=== PATIENT | female | born 1975 | race African-American/Black ===

== ENCOUNTER 2018-08-15 12:26 | Emergency (ER) | payer OTHER ==
[2018-08-15 12:49] VITALS: BMI 30.5
--- NOTE | 2018-08-15 13:35 | PDOC ---
History of Present Illness - General Chief Complaint: Rectal Bleed Stated Complaint: ABD PAIN Time Seen by Provider: 08/15/18 13:01 History Source: Patient Exam Limitations: Clinical Condition - History of Present Illness Initial Comments: 08/15/18 13:30 Patient with no significant past medical history present with complaint of 4 day history of bloody stool with bowel movement. Patient reported given amoxicillin antibiotics 5 days ago and ibuprofen for dental infection which she started having bloody stool the next day. Patient report going to [facility] yesterday for same symptoms and rectal exam and lab work done was normal with no blood on rectal exam and referred to follow-up with GI but was told by GI office when she went there today that her insurance was not accepted at the office so she came to this ED due to still having blood in stool. Pt report 1 BM today which had bright blood. Patient also report intermittent cramping lower left abdominal pain. Pt endorses report h/o hemorrhoids Denies vaginal bleeding, dysuria Timing/Duration: other (4 days) Past History - Past Medical History Allergies/Adverse Reactions: Allergies Allergy/AdvReac Type Severity Reaction Status Date / Time No Known Allergies Allergy Verified 08/15/18 12:42 Home Medications: Ambulatory Orders Docusate Sodium [Colace] 100 mg PO BID #20 capsule 08/15/18 Asthma: No Cancer: No Cardiac Disorders: No COPD: No Diabetes: No HTN: No Seizures: No Thyroid Disease: No - Surgical History GI Surgery: Yes (3.5 inches colon removed) - Immunization History Immunization Up to Date: Yes - Suicide/Smoking/Psychosocial Hx Smoking History: Current every day smoker Have you smoked in the past 12 months: Yes Number of Cigarettes Smoked Daily: 20 Information on smoking cessation initiated: No Hx Alcohol Use: No Drug/Substance Use Hx: No Hx Substance Use Treatment: No Review of Systems - Review of Systems Able to Perform ROS?: Yes Is the patient limited Samoan proficient: No Constitutional: No: Chills, Fever, Malaise HEENTM: No: Symptoms Reported Respiratory: No: Symptoms reported, See HPI, Cough, Orthopnea, Shortness of Breath, SOB with Exertion, SOB at Rest, Stridor, Wheezing, Productive cough, Hemoptysis, Other Cardiac (ROS): No: Symptoms Reported, See HPI, Chest Pain, Edema, Irregular Heart Rate, Lightheadedness, Palpitations, Syncope, Chest Tightness, Other ABD/GI: Yes: Symptoms Reported, See HPI, Nausea, Rectal Bleeding, Abdominal cramping (LLQ), Tarry Stools. No: Abdominal Distended, Abd. Pain w/ defecation , Blood Streaked Bowels, Constipated, Diarrhea, Difficulty Swallowing, Vomiting , Indigestion : No: Burning, Dysuria, Discharge, Frequency, Urgency Neurological: No: Weakness, Dizziness All Other Systems: Reviewed and Negative *Physical Exam - Vital Signs Last Vital Signs Temp Pulse Resp BP Pulse Ox 83 18 126/76 100 08/15/18 12:42 08/15/18 12:42 08/15/18 12:42 08/15/18 12:42 - Physical Exam Comments: 08/15/18 13:38 GENERAL: Well developed, well nourished. Awake and alert. No acute distress. HEENT: Normocephalic, atraumatic. PERRLA, EOMI. No conjunctival pallor. Sclera are non-icteric. Moist mucous membranes. Oropharynx is clear. NECK: Supple. Full ROM. CARDIOVASCULAR: Regular rate and rhythm. No murmurs, rubs, or gallops. Distal pulses are 2+ and symmetric. PULMONARY: No evidence of respiratory distress. Lungs clear to auscultation bilaterally. No wheezing, rales or rhonchi. ABDOMINAL: Soft. mild TTP over LLQ.. Non-distended. No rebound or guarding. No organomegaly. Normoactive bowel sounds. MUSCULOSKELETAL Normal range of motion at all joints. SKIN: Warm and dry. Normal capillary refill. No rashes. NEUROLOGICAL: Alert, awake, appropriate. Gait is normal without ataxia. PSYCHIATRIC: Cooperative. Good eye contact. Appropriate mood General Appearance: Yes: Nourished, Appropriately Dressed. No: Apparent Distress ED Treatment Course - LABORATORY CBC & Chemistry Diagram: 08/15/18 13:35 08/15/18 13:18 - RADIOLOGY Radiology Studies Ordered: Category Date Time Status ABDOMEN & PELVIS CT WITH CONTR [CT] Stat CT Scan 08/15/18 13:10 Ordered Medical Decision Making - Medical Decision Making 08/15/18 13:35 Patient with no significant past medical history present with complaint of 4 day history of bloody stool with bowel movement. Patient reported given amoxicillin antibiotics 5 days ago and ibuprofen for dental infection which she started having bloody stool the next day. Patient report going to [facility] yesterday for same symptoms and rectal exam and lab work done was normal with no blood on rectal exam and referred to follow-up with GI but was told by GI office when she went there today that her insurance was not accepted at the office so she came to this ED due to still having blood in stool. Pt report 1 BM today which had bright blood. Patient also report intermittent cramping lower left abdominal pain. Pt endorses report h/o hemorrhoids Denies vaginal bleeding, dysuria. Exam significant for mild left LQ subjective tenderness w/o gaurding or rebound. rectal exam deferred due to being done yesterday with negative findings. CBC, chemistry labs ordered. abd CT with PO contrast ordered to r/o colitis or acute abd pathology 08/15/18 18:00 CMM, CBC with no acute findings. abd/pelvic CT shows no acute pathology . Patient stable for discharge on colace with GI follow-up *DC/Admit/Observation/Transfer Diagnosis at time of Disposition: Hematochezia not due to hemorrhage from anus - Discharge Dispostion Disposition: HOME Condition at time of disposition: Stable Decision to Admit order: No - Prescriptions Prescriptions: Docusate Sodium [Colace] 100 mg PO BID #20 capsule - Referrals Referrals: Jayleen Roa MD [Primary Care Provider] - James Ayala MD [Staff Physician] - - Patient Instructions Printed Discharge Instructions: DI for Hemorrhoids, DI for Rectal Bleeding Additional Instructions: Your labs was normal. Your abdominal CAT scant shows no acute findings. Your symptom is likely from hemorrhoids. Take prescribed medications as prescribed. Follow-up with referred GI doctor - Post Discharge Activity
[2018-08-15 13:48] LABS: BASO % 1.5 % (0-2.0); EOS % 1.5 % (0-4.5); HEMATOCRIT 42.7 % (32.4-45.2); HEMOGLOBIN 14.2 GM/dL (10.7-15.3); LYMPH % 30.8 % (8-40); MCHC 33.2 g/dl (32.0-36.0); MEAN CELL VOLUME 96.6 fl (80-96); MEAN PLT VOLUME 9.8 fl (7.5-11.1); MONO % 5.6 % (3.8-10.2); NEUT % 60.6 % (42.8-82.8); PLATELET COUNT 158 K/MM3 (134-434); RBC 4.42 M/mm3 (3.60-5.2); RDW 13.6 % (11.6-15.6); WHITE BLOOD COUNT 6.5 K/mm3 (4.0-10.0)
[2018-08-15 14:02] LABS: HCG,QUALITATIVE URINE Negative
[2018-08-15 14:20] LABS: ALBUMIN 3.2 g/dl (3.4-5.0); BILIRUBIN,TOTAL 0.3 mg/dL (0.2-1); CALCIUM 8.4 mg/dL (8.5-10.1); TOT PROT 6.8 g/dl (6.4-8.2)
[2018-08-15 15:34] LABS: EPI CELLS 8.2 /HPF (0-5/HPF); URINE APPEARANCE CLOUDY; URINE BACTERIA 80.9 /hpf (NEGATIVE); URINE BILIRUBIN NEGATIVE (NEGATIVE); URINE CASTS 2 /lpf (0-8); URINE COLOR YELLOW; URINE GLUCOSE (UA) NEGATIVE (NEGATIVE); URINE KETONE NEGATIVE (NEGATIVE); URINE LEUK ESTERASE NEGATIVE (NEGATIVE); URINE NITRITE NEGATIVE (NEGATIVE); URINE PROTEIN NEGATIVE (NEGATIVE); URINE UROBILINOGEN 0.2 mg/dL (0.2-1.0); URINE WBC 2 /hpf (0-5)
[2018-08-15 17:13] LABS: URINE RBC 4.9 /hpf (0-4)
[2018-08-15 18:04] VITALS: BP 130/72; PULSE 65
== END 2018-08-15 18:03 | disposition home or self-care (01) ==
LOC: JER 12:26
DX: K92.1 Melena (principal)
CPT/HCPCS: 36415; 74177-TC; 80053; 81003; 84703; 85025; 87086; 99283-25

== ENCOUNTER 2018-11-18 17:39 | Emergency (ER) | payer OTHER ==
[2018-11-18 17:52] VITALS: BP 120/84; PULSE 74; TEMP 99; BMI 30.5
[2018-11-18] MEDS ORDERED: LIDOCAINE HCL 2% JELLY 10 ML CARTRIDGE PR ONE (18:09)
[2018-11-18] MEDS ORDERED: LIDOCAINE HCL 2% JELLY 10 ML CARTRIDGE ONE (18:09)
--- NOTE | 2018-11-18 18:18 | PDOC ---
History of Present Illness - General Chief Complaint: Hemorrhoids Stated Complaint: HEMORRHOIDS Time Seen by Provider: 11/18/18 18:00 History Source: Patient Exam Limitations: Clinical Condition - History of Present Illness Initial Comments: 11/18/18 18:12 Patient with history of chronic constipation and recurrent hemorrhoids present with complaint of three-day history of hemorrhoids which is painful to sit. Patient reported using cold packs to her hemorrhoid area which help with pain but comes back. Reported taking Motrin sometimes for pain. Patient reported having hemorrhoids for many years but has not followed up with GI. report last BM last night Timing/Duration: other (3 days) Past History - Past Medical History Allergies/Adverse Reactions: Allergies Allergy/AdvReac Type Severity Reaction Status Date / Time No Known Allergies Allergy Verified 11/18/18 17:52 Home Medications: Ambulatory Orders Docusate Sodium [Colace] 100 mg PO BID #20 capsule 11/18/18 Hydrocortisone 2.5% Topical Cr [Anusol-Hc -] 1 applic RC BID 7 Days #1 tube 02/26 Witch Maria Del Rosario 50% (Tucks) [Tucks Witch Maria Del Rosario Pads] 1 pad TP BID PRN #50 pad Asthma: No Cancer: No Cardiac Disorders: No COPD: No Diabetes: No HTN: No Seizures: No Thyroid Disease: No - Surgical History GI Surgery: Yes (3.5 inches colon removed) - Immunization History Immunization Up to Date: Yes - Suicide/Smoking/Psychosocial Hx Smoking History: Never smoked Have you smoked in the past 12 months: Yes Number of Cigarettes Smoked Daily: 20 Hx Alcohol Use: No Drug/Substance Use Hx: No Hx Substance Use Treatment: No Review of Systems - Review of Systems Able to Perform ROS?: Yes Is the patient limited Swedish proficient: No Constitutional: No: Symptoms Reported, Chills, Fever HEENTM: No: Symptoms Reported Respiratory: No: Symptoms reported Cardiac (ROS): No: Symptoms Reported ABD/GI: Yes: Constipated (chronic). No: Symptoms Reported, See HPI, Nausea, Vomiting, Abdominal cramping : Yes: Other. No: Symptoms Reported, See HPI Integumentary: Yes: Symptoms Reported, See HPI, Lumps (hemorrhoid) Neurological: No: Symptoms reported All Other Systems: Reviewed and Negative *Physical Exam - Vital Signs Last Vital Signs Temp Pulse Resp BP Pulse Ox 99 F 74 18 120/84 99 11/18/18 17:49 11/18/18 17:49 11/18/18 17:49 11/18/18 17:49 11/18/18 17:49 - Physical Exam Comments: 11/18/18 18:16 GENERAL: Well developed, well nourished. Awake and alert in mild acute distress. PULMONARY: No evidence of respiratory distress. ABDOMINAL: Soft. Non-tender. Non-distended. No rebound or guarding. No organomegaly. Normoactive bowel sounds. MUSCULOSKELETAL Normal range of motion at all joints. SKIN: Warm and dry. Normal capillary refill. 1 cm external non-strangulated hemorrhoids to perianal area. no bleeding from site NEUROLOGICAL: Alert, awake, appropriate. Gait is normal without ataxia. PSYCHIATRIC: Cooperative. Good eye contact. Appropriate mood General Appearance: Yes: Nourished, Appropriately Dressed, Apparent Distress, Mild Distress Medical Decision Making - Medical Decision Making 11/18/18 18:13 Patient with history of chronic constipation and recurrent hemorrhoids present with complaint of three-day history of hemorrhoids which is painful to sit. Patient reported using cold packs to her hemorrhoid area which help with pain but comes back. Reported taking Motrin sometimes for pain. Patient reported having hemorrhoids for many years but has not followed up with GI Exam significant for 1 cm no strangulated external hemorrhoid to perianal area. No open wound or bleeding from site. Topical lidocaine apply to hemorrhoids. Patient be discharged home on topical steroid, tucks medicated wipes and Colace stool softener with GI follow-up *DC/Admit/Observation/Transfer Diagnosis at time of Disposition: External hemorrhoid Constipation Qualifiers: Constipation type: chronic idiopathic constipation Qualified Code(s): K59.04 - Chronic idiopathic constipation - Discharge Dispostion Disposition: HOME Condition at time of disposition: Stable Decision to Admit order: No - Prescriptions Prescriptions: Docusate Sodium [Colace] 100 mg PO BID #20 capsule Hydrocortisone 2.5% Topical Cr [Anusol-Hc -] 1 applic RC BID 7 Days #1 tube Witch Maria Del Rosario 50% (Tucks) [Tucks Witch Maria Del Rosario Pads] 1 pad TP BID PRN #50 pad PRN Reason: hemorrhoid - Referrals Referrals: Saturnino Sherman MD [Staff Physician] - - Patient Instructions Printed Discharge Instructions: DI for Hemorrhoids Additional Instructions: Take medications as prescribed. do siltz bath o help with hemorroids . Follow- up with referred GI - Post Discharge Activity
== END 2018-11-18 18:32 | disposition home or self-care (01) ==
LOC: JERFT 17:39
DX: K64.8 Other hemorrhoids (principal); K59.04 Chronic idiopathic constipation
CPT/HCPCS: 99281-25

== ENCOUNTER 2018-11-20 11:22 | Emergency (ER) | payer OTHER | END 2018-11-20 12:40 | disposition home or self-care (01) | LOC: JER 11:22 ==

== ENCOUNTER 2018-11-22 04:08 | Inpatient (IN) | payer OTHER ==
[2018-11-22] MEDS ORDERED: LIDOCAINE HCL 5% TOP OINTMENT 50 GM TUBE TP ONE (04:30)
--- NOTE | 2018-11-22 04:31 | PDOC ---
Attending Attestation - Resident Resident Name: MadelynLashawn - ED Attending Attestation I have performed the following: I have examined & evaluated the patient, The case was reviewed & discussed with the resident, I agree w/resident's findings & plan - HPI HPI: 11/27/18 21:27 see resident hpi - Physicial Exam PE: 11/27/18 21:27 agree with resident exam - Medical Decision Making 11/27/18 21:30 43-year-old female with history of hemorrhoids and multiple ER visits due to extreme discomfort Patient unable to ambulate and requiring Dilaudid for pain Call placed for surgical consultation due to upcoming appointment on Monday Will likely admit to medical service for pain management
[2018-11-22] MEDS ORDERED: HYDROmorphone HCL CARPU-JECT 2 MG/1 ML DISP.SYRIN IVPUSH ONE (04:35)
[2018-11-22 04:37] VITALS: BMI 31.3
[2018-11-22] MEDS ORDERED: HYDROmorphone HCl 2 MG/ML VIAL ONE ×3 (04:52→13:56)
[2018-11-22 05:37] LABS: BASO % 0.2 % (0-2.0); EOS % 0.2 % (0-4.5); HEMATOCRIT 38.8 % (32.4-45.2); HEMOGLOBIN 13.6 GM/dL (10.7-15.3); LYMPH % 10.9 % (8-40); MCH 32.6 pg (25.7-33.7); MCHC 35.1 g/dl (32.0-36.0); MEAN CELL VOLUME 92.9 fl (80-96); MEAN PLT VOLUME 9.7 fl (7.5-11.1); MONO % 7.2 % (3.8-10.2); NEUT % 81.5 % (42.8-82.8); PLATELET COUNT 171 K/MM3 (134-434); RBC 4.18 M/mm3 (3.60-5.2); RDW 12.9 % (11.6-15.6)
--- NOTE | 2018-11-22 05:40 | PDOC ---
History of Present Illness - General Chief Complaint: Pain Stated Complaint: RECTAL PAIN Time Seen by Provider: 11/22/18 04:18 History Source: Patient Exam Limitations: No Limitations - History of Present Illness Initial Comments: 11/22/18 05:34 43yo F with PMH of hemorrhoids BIBA for rectal pain due to hemorrhoids. Patient has had these hemorrhoids for about 1 week and has been here multiple times ( and 11/20) without much relief. Patient states she went to [facility] twice today and to [place] but she is still unable to sit down or sleep without severe pain. She has been doing Sitz baths, applying ice packs, taking Motrin and Percocet, applying Lidocaine but nothing is helping. She has and appointment on Monday for hemorrhoidectomy but she says she cannot wait that long. Has had blood occasionally when she wipes. Denies abdominal pain, n/v/d, sob, chest pain, fevers, chills. PMD: Jayleen Roa PMH: none PSH: Meds: Percocet Allergies: nkda Social: smokes 1/2ppd Past History - Past Medical History Allergies/Adverse Reactions: Allergies Allergy/AdvReac Type Severity Reaction Status Date / Time No Known Allergies Allergy Verified 11/20/18 11:35 Home Medications: Ambulatory Orders Docusate Sodium [Colace] 100 mg PO BID #20 capsule 11/18/18 Hydrocortisone 2.5% Topical Cr [Anusol-Hc -] 1 applic RC BID 7 Days #1 tube 02/26 Witch Maria Del Rosario 50% (Tucks) [Tucks Witch Maria Del Rosario Pads] 1 pad TP BID PRN #50 pad Lidocaine 2% Uro-Jet [Xylocaine 2% Uro-Jet] 3 ml UR ONCE #7 cartridge 11/20/18 Asthma: No Cancer: No Cardiac Disorders: No COPD: No Diabetes: No HTN: No Seizures: No Thyroid Disease: No - Surgical History GI Surgery: Yes (3.5 inches colon removed) - Immunization History Immunization Up to Date: Yes - Suicide/Smoking/Psychosocial Hx Smoking History: Current every day smoker Have you smoked in the past 12 months: Yes Number of Cigarettes Smoked Daily: 10 Information on smoking cessation initiated: No Hx Alcohol Use: No Drug/Substance Use Hx: No Hx Substance Use Treatment: No Review of Systems - Review of Systems Constitutional: No: Chills, Fever HEENTM: No: Symptoms Reported Respiratory: No: Symptoms reported Cardiac (ROS): No: Symptoms Reported ABD/GI: Yes: See HPI : No: Symptoms Reported Musculoskeletal: No: Symptoms Reported Integumentary: No: Symptoms Reported Neurological: No: Symptoms reported *Physical Exam - Vital Signs Last Vital Signs Temp Pulse Resp BP Pulse Ox 98.3 F 73 18 161/90 100 11/22/18 04:24 11/22/18 04:24 11/22/18 04:24 11/22/18 04:24 11/22/18 04:24 - Physical Exam General Appearance: Yes: Appropriately Dressed, Severe Distress, Obese HEENT: positive: EOMI, GAY Neck: positive: Trachea midline, Supple Respiratory/Chest: positive: Lungs Clear, Normal Breath Sounds Cardiovascular: positive: Regular Rhythm, Regular Rate. negative: S1, S2, Edema , JVD Vascular Pulses: Dorsalis-Pedis (R): 2+, Doralis-Pedis (L): 2+ Gastrointestinal/Abdominal: positive: Normal Bowel Sounds, Soft. negative: Tender Rectal Exam: positive: hemorrhoids (external hemorrhoids x2 at 6oclock position , thrombosed, ttp) Musculoskeletal: negative: CVA Tenderness Extremity: positive: Normal Capillary Refill. negative: Swelling, Calf Tenderness Integumentary: positive: Normal Color, Dry, Warm Neurologic: positive: technical service specialist II-XII NML intact, Fully Oriented, Alert, Normal Mood/ Affect, Normal Response, Motor Strength 5/5 ED Treatment Course - LABORATORY CBC & Chemistry Diagram: 11/22/18 05:24 11/22/18 05:24 - RADIOLOGY Radiology Studies Ordered: Category Date Time Status CHEST X-RAY PORTABLE* [RAD] Stat Radiology 11/22/18 05:16 Ordered - Medications Given in the ED: ED Medications Discontinued Medications Generic Name Dose Route Start Last Admin Trade Name Freq PRN Reason Stop Dose Admin Hydromorphone HCl 2 mg 11/22/18 04:35 11/22/18 05:17 Dilaudid Injection - IVPUSH 11/22/18 04:36 2 mg ONCE ONE Administration Lidocaine HCl 1 applic 11/22/18 04:30 11/22/18 05:17 Xylocaine 5% Top. Ointment TP 11/22/18 04:31 Not Given ONCE ONE Medical Decision Making - Medical Decision Making 11/22/18 05:45 43yo F with PMH of hemorrhoids BIBA for rectal pain due to hemorrhoids. Patient has had these hemorrhoids for about 1 week and has been here multiple times ( and 11/20) without much relief. Patient states she went to [facility] twice today and to [place] but she is still unable to sit down or sleep without severe pain. She has been doing Sitz baths, applying ice packs, taking Motrin and Percocet, applying Lidocaine but nothing is helping. She has and appointment on Monday for hemorrhoidectomy but she says she cannot wait that long. Has had blood occasionally when she wipes. Denies abdominal pain, n/v/d, sob, chest pain, fevers, chills. Vitals: wnl PE: severe distress, external hemorrhoids at 6oclock position, ttp, thrombosed. ruptured hemorrhoid at 9oclock pt has thrombosed hemorrhoids. Has scheduled surgery Monday with Dr. Heath Moctezuma. pt is highly uncomfortable, has had multiple ED visits for this problem. She has had intractable pain due to hemorrhoids. will give lidocaine and pain control Called Dr. Heath Moctezuma, Dr. Donald responded, will see patient if admitted for pain. Pt has had hemorrhoids for over 3d, likely has inflammation. will get admission labs. *DC/Admit/Observation/Transfer Diagnosis at time of Disposition: External hemorrhoid, Intractable pain - Discharge Dispostion Condition at time of disposition: Good Decision to Admit order Date/Time: Decision to Admit Order Category Date Time Status Decision to Admit to Hospital Routine Admission 11/22/18 05:16 Active - Referrals - Patient Instructions - Post Discharge Activity
[2018-11-22 05:58] LABS: INR 1.33 (0.83-1.09); PROTHROMBIN TIME (PATIENT) 15.7 SEC (9.7-13.0)
[2018-11-22 06:07] LABS: ALBUMIN 3.5 g/dl (3.4-5.0); BILIRUBIN,TOTAL 0.8 mg/dL (0.2-1); BLOOD UREA NITROGEN 11.5 mg/dL (7-18); CALCIUM 8.6 mg/dL (8.5-10.1); POTASSIUM 3.2 mmol/L (3.5-5.1); TOT PROT 7.3 g/dl (6.4-8.2)
--- NOTE | 2018-11-22 08:43 | HP ---
CHIEF COMPLAINT: intractable pain from external hemorrhoids PCP: Dr. Jayleen Roa HISTORY OF PRESENT ILLNESS: 43 y/o female with PMH of external hemorrhoids (first started around 10 yeasr ago) presents to the ED with intractable pain 2/2 hemorrhoids. Patient states that this pain started around a week ago, and initially the pain responded to sitz baths and topical creams however in the past few days the pain has gotten very severe. she initially presented to [facility] on 11/18 where she was discharged home with topical medication and pain meds however her insurance would not cover it, then she came back and the ED had placed lidocaine on the area whcih made her pain worse, they also gave her a referral to dr. 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 the pain had gotten so severe to the point where she had been sitting on frozen meats in her house and couldnt take the pain so she had come back to the hospital- her last bowel movement was yesterday which felt ok due to use of stool softeners, she denies any sick contacts or recent travel ER course was notable for: (1)slight leukocytosis of 12;, hypokalemic to 3.2 vitals wnl (2)given dilaudid X1 (3)dr. blevins consulted from the ED and will come to see the pt this AM Recent Travel: denies PAST MEDICAL HISTORY: see above PAST SURGICAL HISTORY: right fallopian tube removed Social History: Smoking:smoked 1/2 ppd Alcohol:denies Drugs: denies Family History: father HTN; mother bladder ca Allergies No Known Allergies Allergy (Verified 11/20/18 11:35) HOME MEDICATIONS: Home Medications Medication Instructions Recorded Docusate Sodium [Colace] 100 mg PO BID #20 capsule 11/18/18 Hydrocortisone 2.5% Topical Cr 1 applic RC BID 7 Days #1 tube 11/18/18 [Anusol-Hc -] Witch Maria Del Rosario 50% (Tucks) [Tucks 1 pad TP BID PRN #50 pad 11/18/18 Witch Maria Del Rosario Pads] Lidocaine 2% Uro-Jet [Xylocaine 2% 3 ml UR ONCE #7 cartridge 11/20/18 Uro-Jet] REVIEW OF SYSTEMS CONSTITUTIONAL: Absent: fever, chills, diaphoresis, generalized weakness, malaise, loss of appetite, weight change HEENT: Absent: rhinorrhea, nasal congestion, throat pain, throat swelling, difficulty swallowing, mouth swelling, ear pain, eye pain, visual changes CARDIOVASCULAR: Absent: chest pain, syncope, palpitations, irregular heart rate, lightheadedness , peripheral edema RESPIRATORY: Absent: cough, shortness of breath, dyspnea with exertion, orthopnea, wheezing, stridor, hemoptysis GASTROINTESTINAL: Present: rectal pain 2/2 hemorrhoids Absent: abdominal pain, abdominal distension, nausea, vomiting, diarrhea, constipation, melena, hematochezia GENITOURINARY: Absent: dysuria, frequency, urgency, hesitancy, hematuria, flank pain, genital pain MUSCULOSKELETAL: Absent: myalgia, arthralgia, joint swelling, back pain, neck pain SKIN: Absent: rash, itching, pallor HEMATOLOGIC/IMMUNOLOGIC: Absent: easy bleeding, easy bruising, lymphadenopathy, frequent infections ENDOCRINE: Absent: unexplained weight gain, unexplained weight loss, heat intolerance, cold intolerance NEUROLOGIC: Absent: headache, focal weakness or paresthesias, dizziness, unsteady gait, seizure, mental status changes, bladder or bowel incontinence PSYCHIATRIC: Absent: anxiety, depression, suicidal or homicidal ideation, hallucinations. PHYSICAL EXAMINATION Vital Signs - 24 hr 11/22/18 11/22/18 11/22/18 04:24 06:31 08:18 Temperature 98.3 F Pulse Rate 73 Pulse Rate [ 67 Apical] Respiratory 18 17 Rate Blood Pressure 161/90 Blood Pressure 123/75 [Left Arm] O2 Sat by Pulse 100 100 Oximetry (%) GENERAL: Awake, alert, and fully oriented, in acute distress, rocking back and forth in pain . EYES: PEERLA: EOMI; no scleral icterus NECK:no JVD; no lymphadenopathy LUNGS: CTA B/L; no rales, rhonchi or wheezing HEART: Regular rate and rhythm, normal S1 and S2 without murmur, rub or gallop. ABDOMEN: soft; NT/ND +BS in all 4 quadrants RECTAL: extrernal hemorrhoids present (6 oclock position); not bloody MUSCULOSKELETAL: Normal range of motion at all joints. No bony deformities or tenderness. No CVA tenderness. EXTREMITIES: warm; well-perfused no clubbing/cyanosis or edema PSYCHIATRIC: Cooperative. Good eye contact. Appropriate mood and affect. SKIN: Warm, dry, normal turgor, no rashes or lesions noted, normal capillary refill. Laboratory Results - last 24 hr 11/22/18 11/22/18 11/22/18 05:18 05:24 05:24 WBC 12.0 H RBC 4.18 Hgb 13.6 Hct 38.8 MCV 92.9 MCH 32.6 MCHC 35.1 RDW 12.9 Plt Count 171 MPV 9.7 Absolute Neuts (auto) 9.8 H Neutrophils % 81.5 D Lymphocytes % 10.9 D Monocytes % 7.2 Eosinophils % 0.2 D Basophils % 0.2 Nucleated RBC % 0 PT with INR 15.70 H INR 1.33 H Sodium 139 Potassium 3.2 L Chloride 104 Carbon Dioxide 22 Anion Gap 12 BUN 11.5 Creatinine 1.0 Est GFR (CKD-EPI)AfAm 81.04 Est GFR (CKD-EPI)NonAf 69.92 Random Glucose 105 Calcium 8.6 Total Bilirubin 0.8 AST 68 H ALT 35 Alkaline Phosphatase 96 Total Protein 7.3 Albumin 3.5 Serum , Qual 11/22/18 06:39 WBC RBC Hgb Hct MCV MCH MCHC RDW Plt Count MPV Absolute Neuts (auto) Neutrophils % Lymphocytes % Monocytes % Eosinophils % Basophils % Nucleated RBC % PT with INR INR Sodium Potassium Chloride Carbon Dioxide Anion Gap BUN Creatinine Est GFR (CKD-EPI)AfAm Est GFR (CKD-EPI)NonAf Random Glucose Calcium Total Bilirubin AST ALT Alkaline Phosphatase Total Protein Albumin Serum , Qual Negative ASSESSMENT/PLAN: 43 y/o female with PMH of external hemorrhoids (first started around 10 yeasr ago) presents to the ED with intractable pain 2/2 hemorrhoids. #Intractable pain 2/2 External Hemorrhoids patient already received dilaudid X1 in the ED -will c/w dilaudid 2gram q4H -preparation H cream -dr blevins consulted; will see patient today most likely go for hemorrhoidectomy -NPO -NS @75mls.hr ##Hypoklaemia patient was hypokalemic to 3.2 -will replete F/E/N NS@75mls.hr monitor electrolytes NPO for possible OR DVT PPX: SCDS Problem List - Problem (1) External hemorrhoid Code(s): K64.4 - RESIDUAL HEMORRHOIDAL SKIN TAGS (2) Intractable pain Code(s): R52 - PAIN, UNSPECIFIED Visit type - Emergency Visit Emergency Visit: Yes ED Registration Date: 11/22/18 Care time: The patient presented to the Emergency Department on the above date and was hospitalized for further evaluation of their emergent condition. - New Patient This patient is new to me today: Yes Date on this admission: 11/22/18 - Critical Care Critical Care patient: No ATTENDING PHYSICIAN STATEMENT I saw and evaluated the patient. I reviewed the resident's note and discussed the case with the resident. I agree with the resident's findings and plan as documented. SUBJECTIVE: OBJECTIVE: ASSESSMENT AND PLAN:
[2018-11-22] MEDS ORDERED: SODIUM CHLORIDE 1,000 ML IV SCH (08:45)
[2018-11-22] MEDS: PHENYLEPHRINE HCL/COCOA BUTTER SUPPOSITORY RC SCH (09:16)
[2018-11-22] MEDS: HYDROmorphone HCl 2 MG/ML VIAL IVPUSH PRN ×3 (09:16→18:20)
[2018-11-22] MEDS ORDERED: KCL 10 MEQ IVPB 20 MEQ/200 ML INFUS.BAG IVPB ONE (09:19)
[2018-11-22] MEDS: KCL 10 MEQ IVPB 10 MEQ/100 ML INFUS.BAG IVPB SCH ×2 (09:29→10:47)
--- NOTE | 2018-11-22 10:35 | PN ---
Progress Note (short form) - Note Progress Note: surgery pt seen and examined. 43f with small likely thrombosed hemorroids at 3:00 position as seen in lithotomy. offered thrombectomy and pt declines. unclear if thrombectomy after more than 3 days would be benificial. recommend conservative mangement. would not remove hemorrhoids when inflamed for risk of incontinence and these hemorroids are likely too small to warrant excision electively. recomment increase fruit, vegetable, whole grains and decrease meat and dairy. limit time on toilet. prelubricate anus with water soluble lubricant prior to defecation. avoid toiltet pater. shower>wet wipes. consider short term steroid/anesthetic cream. cool sitz baths. Pain can be expected to last for 2 weeks. will be available. can re-eval as outpt. d.r.e. declined due to pain.
--- NOTE | 2018-11-22 10:54 | EKG ---
Test Reason : Blood Pressure : / mmHG Vent. Rate : 059 BPM Atrial Rate : 059 BPM P-R Int : 118 ms QRS Dur : 090 ms QT Int : 456 ms P-R-T Axes : 041 053 055 degrees QTc Int : 451 ms SINUS BRADYCARDIA NONSPECIFIC T WAVE ABNORMALITY NO PREVIOUS ECGS AVAILABLE Confirmed by MELQUIADES HAN MD ([id number]) on 11/22/2018 10:54:08 AM Referred By: Confirmed By:MELQUIADES HAN MD
--- NOTE | 2018-11-22 16:35 | PN ---
Teaching Attending Note Name of Resident: Beatris Emmanuel ATTENDING PHYSICIAN STATEMENT I saw and evaluated the patient. I reviewed the resident's note and discussed the case with the resident. I agree with the resident's findings and plan as documented. SUBJECTIVE: Complains of severe rectal pain and intermittent bleeding on defecation. No abdominal pain/fever/chills. OBJECTIVE: Afebrile, hemodynamically Stable. Last Vital Signs Temp Pulse Resp BP Pulse Ox 98.3 F 83 17 104/79 100 11/22/18 12:00 11/22/18 14:08 11/22/18 14:08 11/22/18 14:08 11/22/18 12:00 HEENT - Atraumatic, Normocephalic. Heart - S1, S2, RRR Lungs - clear to auscultation Abdomen - Soft, non-tender. Rectal exam - done by resident and Surgery. Deferred at this time due to pain. Extremities - no edema, no calf tenderness. Laboratory Results - last 24 hr 11/22/18 11/22/18 11/22/18 05:18 05:24 05:24 WBC 12.0 H RBC 4.18 Hgb 13.6 Hct 38.8 MCV 92.9 MCH 32.6 MCHC 35.1 RDW 12.9 Plt Count 171 MPV 9.7 Absolute Neuts (auto) 9.8 H Neutrophils % 81.5 D Lymphocytes % 10.9 D Monocytes % 7.2 Eosinophils % 0.2 D Basophils % 0.2 Nucleated RBC % 0 PT with INR 15.70 H INR 1.33 H PTT (Actin FS) Sodium 139 Potassium 3.2 L Chloride 104 Carbon Dioxide 22 Anion Gap 12 BUN 11.5 Creatinine 1.0 Est GFR (CKD-EPI)AfAm 81.04 Est GFR (CKD-EPI)NonAf 69.92 Random Glucose 105 Calcium 8.6 Total Bilirubin 0.8 AST 68 H ALT 35 Alkaline Phosphatase 96 Total Protein 7.3 Albumin 3.5 Serum , Qual Blood Type Antibody Screen 11/22/18 11/22/18 11/22/18 05:24 05:35 06:39 WBC RBC Hgb Hct MCV MCH MCHC RDW Plt Count MPV Absolute Neuts (auto) Neutrophils % Lymphocytes % Monocytes % Eosinophils % Basophils % Nucleated RBC % PT with INR INR PTT (Actin FS) 29.0 Sodium Potassium Chloride Carbon Dioxide Anion Gap BUN Creatinine Est GFR (CKD-EPI)AfAm Est GFR (CKD-EPI)NonAf Random Glucose Calcium Total Bilirubin AST ALT Alkaline Phosphatase Total Protein Albumin Serum , Qual Negative Blood Type O POSITIVE Antibody Screen Negative Current Medications Generic Name Dose Route Start Last Admin Trade Name Freq PRN Reason Stop Dose Admin [place] Butter/Phenylephrine 1 each 11/22/18 10:00 11/22/18 09:16 Preparation H Suppository RC Not Given DAILY MUR[facility] Hydromorphone HCl 2 mg 11/22/18 14:10 Dilaudid Vial - IVPUSH Q6H PRN PAIN LEVEL 4 - 6 Home Medications Medication Instructions Recorded Docusate Sodium [Colace] 100 mg PO BID #20 capsule 11/18/18 Hydrocortisone 2.5% Topical Cr 1 applic RC BID 7 Days #1 tube 11/18/18 [Anusol-Hc -] Witch Maria Del Rosario 50% (Tucks) [Tucks 1 pad TP BID PRN #50 pad 11/18/18 Witch Maria Del Rosario Pads] Lidocaine 2% Uro-Jet [Xylocaine 2% 3 ml UR ONCE #7 cartridge 11/20/18 Uro-Jet] ASSESSMENT AND PLAN: 43 year old female with history of external hemorrhoids, presents with intractable pain and intermittent bleeding associated with hemorrhoids, failed out-patient management with Sitz Baths and topical ointments. 1. Intractable Anal Pain secondary to External Hemorrhoids Surgery evaluated - no surgical intervention currently Dilaudid prn Sitz bath, Preparation H (only topical available on formulary) avoid TP as per Sx. Stool softener. Will monitor. 2. Hypokalemia - repleted. DVT Px - SCDs.
[2018-11-22] MEDS ORDERED: PT OWN MED DRAWER 7, Y5N ONE (18:50)
[2018-11-22] MEDS: ACETAMINOPHEN 500 MG TABLET (FP) PO PRN (21:54)
[2018-11-22] MEDS: NICOTINE 14 MG/24 HOURS TOPICAL PATCH TD SCH (22:23)
[2018-11-22] MEDS: DOCUSATE SODIUM 100 MG CAPSULE (FP) PO SCH (22:25)
[2018-11-22] MEDS: HYDROCORTISONE 2.5% TOPICAL CREAM 30 GM TUBE TP SCH (22:26)
[2018-11-23] MEDS: HYDROmorphone HCl 2 MG/ML VIAL IVPUSH PRN ×2 (00:24→05:02)
[2018-11-23] MEDS ORDERED: morphine CARPU-JECT 4 MG/1 ML DISP.SYRIN IVPUSH ONE (04:26)
[2018-11-23] MEDS ORDERED: MORPHINE SULFATE 2 MG/ML VIAL ONE (04:31)
[2018-11-23] MEDS ORDERED: traMADol HCL 50 MG TABLET PO ONE (04:36)
[2018-11-23] MEDS ORDERED: PT OWN MED DRAWER 7, Y5N ONE (09:13)
[2018-11-23] MEDS ORDERED: traMADol HCL 50 MG TABLET PO PRN (09:15)
[2018-11-23] MEDS: DOCUSATE SODIUM 100 MG CAPSULE (FP) PO SCH (09:44)
[2018-11-23] MEDS: HYDROCORTISONE 2.5% TOPICAL CREAM 30 GM TUBE TP SCH (09:47)
[2018-11-23] MEDS: NICOTINE 14 MG/24 HOURS TOPICAL PATCH TD SCH (09:51)
[2018-11-23] MEDS: PHENYLEPHRINE HCL/COCOA BUTTER SUPPOSITORY RC SCH (09:52)
[2018-11-23] MEDS: ACETAMINOPHEN 500 MG TABLET (FP) PO PRN (09:52)
[2018-11-23 09:54] VITALS: BP 109/48; PULSE 61; TEMP 98.4
[2018-11-23] MEDS ORDERED: IBUPROFEN 600 MG TABLET (FP) PO PRN (09:57)
[2018-11-23] MEDS ORDERED: PSYLLIUM 5.85 GM PACKET PO SCH (10:00)
[2018-11-23 11:18] LABS: BASO % 0.3 % (0-2.0); EOS % 0.4 % (0-4.5); HEMATOCRIT 41.1 % (32.4-45.2); LYMPH % 17.1 % (8-40); MCH 32.2 pg (25.7-33.7); MCHC 34.1 g/dl (32.0-36.0); MEAN CELL VOLUME 94.2 fl (80-96); MEAN PLT VOLUME 10.3 fl (7.5-11.1); MONO % 6.3 % (3.8-10.2); NEUT % 75.9 % (42.8-82.8); PLATELET COUNT 177 K/MM3 (134-434); RBC 4.36 M/mm3 (3.60-5.2); RDW 13.3 % (11.6-15.6); WHITE BLOOD COUNT 11.9 K/mm3 (4.0-10.0)
[2018-11-23 11:20] LABS: ALBUMIN 3.7 g/dl (3.4-5.0); BILIRUBIN,TOTAL 0.8 mg/dL (0.2-1); BLOOD UREA NITROGEN 11.7 mg/dL (7-18); CALCIUM 9.3 mg/dL (8.5-10.1); MAGNESIUM 1.8 mg/dL (1.8-2.4); POTASSIUM 3.3 mmol/L (3.5-5.1); TOT PROT 7.8 g/dl (6.4-8.2)
[2018-11-23] MEDS ORDERED: POTASSIUM CHLORIDE TABS 10 MEQ TABLET.ER (FP) PO ONE (14:37)
--- NOTE | 2018-11-23 14:46 | PN ---
Physical Exam: SUBJECTIVE: Patient seen and examined OBJECTIVE: Vital Signs Period Temp Pulse Resp BP Sys/Sher Pulse Ox Last 24 Hr 97.9 F-98.7 F 60-88 18-20 109-148/48-100 98-98 GENERAL: The patient is awake, alert, and fully oriented, in no acute distress. HEAD: Normal with no signs of trauma. EYES: PERRL, extraocular movements intact, sclera anicteric, conjunctiva clear. No ptosis. ENT: Ears normal, nares patent, oropharynx clear without exudates, moist mucous membranes. NECK: Trachea midline, full range of motion, supple. LUNGS: Breath sounds equal, clear to auscultation bilaterally, no wheezes, no crackles, no accessory muscle use. HEART: Regular rate and rhythm, S1, S2 without murmur, rub or gallop. ABDOMEN: Soft, nontender, nondistended, normoactive bowel sounds, no guarding, no rebound, no hepatosplenomegaly, no masses. EXTREMITIES: 2+ pulses, warm, well-perfused, no edema. NEUROLOGICAL: Cranial nerves II through XII grossly intact. Normal speech, gait not observed. PSYCH: Normal mood, normal affect. SKIN: Warm, dry, normal turgor, no rashes or lesions noted Laboratory Results - last 24 hr 11/23/18 11/23/18 10:20 10:20 WBC 11.9 H RBC 4.36 Hgb 14.0 Hct 41.1 MCV 94.2 MCH 32.2 MCHC 34.1 RDW 13.3 Plt Count 177 MPV 10.3 Absolute Neuts (auto) 9.0 H Neutrophils % 75.9 Lymphocytes % 17.1 D Monocytes % 6.3 Eosinophils % 0.4 D Basophils % 0.3 Nucleated RBC % 0 Sodium 139 Potassium 3.3 L Chloride 104 Carbon Dioxide 24 Anion Gap 11 BUN 11.7 Creatinine 1.0 Est GFR (CKD-EPI)AfAm 81.04 Est GFR (CKD-EPI)NonAf 69.92 Random Glucose 101 Calcium 9.3 Magnesium 1.8 Total Bilirubin 0.8 AST 103 H ALT 63 H Alkaline Phosphatase 99 Total Protein 7.8 Albumin 3.7 Active Medications Generic Name Dose Route Start Last Admin Trade Name Freq PRN Reason Stop Dose Admin Acetaminophen 1,000 mg 11/22/18 16:36 08/16/19 09:52 Tylenol - PO 1,000 mg Q6H PRN Administration PAIN [place] Butter/Phenylephrine 1 each 11/22/18 10:00 11/23/18 09:52 Preparation H Suppository RC Not Given DAILY [facility] Docusate Sodium 100 mg 11/22/18 22:00 11/23/18 09:44 Colace - PO 100 mg BID MURTAZA Administration Hydrocortisone 1 applic 11/22/18 22:00 11/23/18 09:47 Anusol 2.5% Hc Cream - TP Not Given BID [facility] Ibuprofen 600 mg 11/23/18 09:57 11/23/18 12:42 Motrin - PO 600 mg Q6H PRN Administration PAIN LEVEL 6-10 Nicotine 14 mg 11/22/18 20:00 11/23/18 09:51 Nicoderm Patch - TD Not Given DAILY [facility] Psyllium Hydrophilic Mucilloid 5.85 gm 11/23/18 10:00 11/23/18 09:43 Metamucil (Sugar-Free) - PO 5.85 gm DAILY [facility]URTAZA Administration Tramadol HCl 50 mg 11/23/18 09:15 11/23/18 09:44 Ultram - PO 50 mg Q4H PRN Administration PAIN LEVEL 4 - 6 ASSESSMENT/PLAN: ATTENDING PHYSICIAN STATEMENT I saw and evaluated the patient. I reviewed the resident's note and discussed the case with the resident. I agree with the resident's findings and plan as documented. SUBJECTIVE: OBJECTIVE: ASSESSMENT AND PLAN:
--- NOTE | 2018-11-23 17:24 | DS ---
Physical Exam: SUBJECTIVE: Patient seen and examined. Doing well, pain is well controlled and improved significantly. OBJECTIVE: Vital Signs Period Temp Pulse Resp BP Sys/Sher Pulse Ox Last 24 Hr 97.9 F-98.7 F 60-72 18-20 109-145/48-100 98-98 PHYSICAL EXAM GENERAL: The patient is awake, alert, and fully oriented, in no acute distress. LUNGS: Breath sounds equal, clear to auscultation bilaterally, no wheezes, no crackles, no accessory muscle use. HEART: Regular rate and rhythm, S1, S2 without murmur, rub or gallop. ABDOMEN: Soft, nontender, nondistended, normoactive bowel sounds, no guarding. EXTREMITIES: 2+ pulses, warm, well-perfused, no edema. No LE tenderness. RECTAL: External hemorrhoids present. No obvious bleeding. Pt refused ALEX. SKIN: No rashes or lesions noted. LABS Laboratory Results - last 24 hr Laboratory Last Values WBC 11.9 K/mm3 (4.0-10.0) H 11/23/18 10:20 RBC 4.36 M/mm3 (3.60-5.2) 11/23/18 10:20 Hgb 14.0 GM/dL (10.7-15.3) 11/23/18 10:20 Hct 41.1 % (32.4-45.2) 11/23/18 10:20 MCV 94.2 fl (80-96) 11/23/18 10:20 MCH 32.2 pg (25.7-33.7) 11/23/18 10:20 MCHC 34.1 g/dl (32.0-36.0) 11/23/18 10:20 RDW 13.3 % (11.6-15.6) 11/23/18 10:20 Plt Count 177 K/MM3 (134-434) 11/23/18 10:20 MPV 10.3 fl (7.5-11.1) 11/23/18 10:20 Absolute Neuts (auto) 9.0 K/mm3 (1.5-8.0) H 11/23/18 10:20 Neutrophils % 75.9 % (42.8-82.8) 11/23/18 10:20 Lymphocytes % 17.1 % (8-40) D 11/23/18 10:20 Monocytes % 6.3 % (3.8-10.2) 11/23/18 10:20 Eosinophils % 0.4 % (0-4.5) D 11/23/18 10:20 Basophils % 0.3 % (0-2.0) 11/23/18 10:20 Nucleated RBC % 0 % (0-0) 11/23/18 10:20 PT with INR SEC (9.7-13.0) 11/22/18 05:35 INR (0.83-1.09) 11/22/18 05:35 PTT (Actin FS) 29.0 SECONDS (25.2-36.5) 11/22/18 05:35 Sodium 139 mmol/L (136-145) 11/23/18 10:20 Potassium 3.3 mmol/L (3.5-5.1) L 11/23/18 10:20 Chloride 104 mmol/L (98-107) 11/23/18 10:20 Carbon Dioxide 24 mmol/L (21-32) 11/23/18 10:20 Anion Gap 11 MMOL/L (8-16) 11/23/18 10:20 BUN 11.7 mg/dL (7-18) 11/23/18 10:20 Creatinine 1.0 mg/dL (0.55-1.3) 11/23/18 10:20 Est GFR (CKD-EPI)AfAm 81.04 11/23/18 10:20 Est GFR (CKD-EPI)NonAf 69.92 11/23/18 10:20 Random Glucose 101 mg/dL (74-106) 11/23/18 10:20 Calcium 9.3 mg/dL (8.5-10.1) 11/23/18 10:20 Magnesium 1.8 mg/dL (1.8-2.4) 11/23/18 10:20 Total Bilirubin 0.8 mg/dL (0.2-1) 11/23/18 10:20 AST 103 U/L (15-37) H 11/23/18 10:20 ALT 63 U/L (13-61) H 11/23/18 10:20 Alkaline Phosphatase 99 U/L (45-117) 11/23/18 10:20 Total Protein 7.8 g/dl (6.4-8.2) 11/23/18 10:20 Albumin 3.7 g/dl (3.4-5.0) 11/23/18 10:20 Serum , Qual Negative 11/22/18 06:39 Blood Type O POSITIVE 11/22/18 05:24 Antibody Screen Negative 11/22/18 05:24 HOSPITAL COURSE: 43 y.o. F H external hemorrhoids >10 years presented with 10/10 intractable anal pain. Found to have external hemorrhoids. Patient was evaluated by surgery who recommended conservative management. Patient given sitz bath, preparation H , psyllium with improvement of symptoms. Dilaudid PRN given for pain control. Recommended increasing fruits, vegetables and whole grains in diet & decreasing consumption of meats & dairy. Recommended to decrease toilet time and avoid toilet paper use. Patient can use 2.5% hydrocortisone topical cream as needed. Date of Admission:11/22/18 Date of Discharge: 11/23/18 Minutes to complete discharge: 36 Discharge Summary Reason For Visit: INTRACTABLE PAIN,THROMBOSED HEMORRHOIDS, Condition: Stable - Instructions Diet, Activity, Other Instructions: Your visit: You presented to the hospital with anal pain. This was caused by your hemorrhoids. You were seen by surgery and recommended pain control. Medication Changes: 1. You may take oral ibuprofen 600mg as needed for pain every 6 hours. Do not exceed more than 2400mg per day as this may cause bleeding. 2. You may use a sitz bath as needed for pain. 3. Please use 2.5% hydrocortisone cream as needed for your pain 4. Please use preparation H as needed. 5. Psyllium 5.85g 1 packet per day. Continue your other home medications as prescribed. Follow up with the following physicians: 1. Primary care provider in 2 weeks. 2. General surgery in 2 weeks (Dr. Baeza) Further Instructions: Please make sure to increase intake of fruits vegetables and whole grains; decrease intake of meats and dairy products. When you have to use the toilet to have a bowel movement, please try to limit your time on the toilet. Pre-lubricate the anus with water soluble lubricant prior to having a bowel movement. When using the bathroom, please avoid using toilet paper when wiping. Make sure to shower thoroughly, wet wipes may be used if necessary. Your symptoms may last for about 2 weeks. Please return to the ER if you have any signs or symptoms of chest pain, shortness of breath, dizziness, nausea, vomiting, abdominal pains, diarrhea, fevers, fatigue or muscle pains. Please return to the ER if symptoms persist, worsen, or new symptoms arise. Referrals: [facility] [place] [Provider Group] Brian Baeza MD [Staff Physician] - Disposition: HOME - Home Medications Comprehensive Discharge Medication List: Ambulatory Orders Docusate Sodium [Colace] 100 mg PO BID #20 capsule 11/18/18 Hydrocortisone 2.5% Topical Cr [Anusol-Hc -] 1 applic RC BID 7 Days #1 tube 02/26 Witch Maria Del Rosario 50% (Tucks) [Tucks Pads -] 1 pad TP BID PRN #50 pad 11/18/18 Phenylephrine HCl/[place] Butter [Preparation H Suppository] 1 each RC DAILY #7 supp.rect 11/23/18 Psyllium [Metamucil (Sugar-Free) -] 5.85 gm PO DAILY 7 Days #7 packet 11/23/18 This patient is new to me today: Yes Date on this admission: 11/23/18 Emergency Visit: Yes ED Registration Date: 11/22/18 Care time: The patient presented to the Emergency Department on the above date and was hospitalized for further evaluation of their emergent condition. Critical Care patient: No - Discharge Referral [facility]erred to [facility] No ATTENDING PHYSICIAN STATEMENT I saw and evaluated the patient. I reviewed the resident's note and discussed the case with the resident. I agree with the resident's findings and plan as documented. SUBJECTIVE: OBJECTIVE: ASSESSMENT AND PLAN:
--- NOTE | 2018-11-23 18:44 | PN ---
Teaching Attending Note Name of Resident: Amira Jones ATTENDING PHYSICIAN STATEMENT I saw and evaluated the patient. I reviewed the resident's note and discussed the case with the resident. I agree with the resident's findings and plan as documented. SUBJECTIVE: Complains of severe rectal pain and intermittent bleeding on defecation. Tearful. No abdominal pain/fever/chills. OBJECTIVE: Afebrile, hemodynamically Stable. Last Vital Signs Temp Pulse Resp BP Pulse Ox 98.4 F 61 20 109/48 L 98 11/23/18 09:53 11/23/18 09:53 11/23/18 09:53 11/23/18 09:53 11/23/18 09:00 Heart - S1, S2, RRR Lungs - clear to auscultation Abdomen - Soft, non-tender. Rectal exam - done by resident and Surgery. Deferred at this time due to pain. Extremities - no edema, no calf tenderness. Laboratory Results - last 24 hr 11/23/18 11/23/18 10:20 10:20 WBC 11.9 H RBC 4.36 Hgb 14.0 Hct 41.1 MCV 94.2 MCH 32.2 MCHC 34.1 RDW 13.3 Plt Count 177 MPV 10.3 Absolute Neuts (auto) 9.0 H Neutrophils % 75.9 Lymphocytes % 17.1 D Monocytes % 6.3 Eosinophils % 0.4 D Basophils % 0.3 Nucleated RBC % 0 Sodium 139 Potassium 3.3 L Chloride 104 Carbon Dioxide 24 Anion Gap 11 BUN 11.7 Creatinine 1.0 Est GFR (CKD-EPI)AfAm 81.04 Est GFR (CKD-EPI)NonAf 69.92 Random Glucose 101 Calcium 9.3 Magnesium 1.8 Total Bilirubin 0.8 AST 103 H ALT 63 H Alkaline Phosphatase 99 Total Protein 7.8 Albumin 3.7 Discharge Medications Medication Instructions Recorded Docusate Sodium [Colace] 100 mg PO BID #20 capsule 11/18/18 Hydrocortisone 2.5% Topical Cr 1 applic RC BID 7 Days #1 tube 11/18/18 [Anusol-Hc -] Witch Maria Del Rosario 50% (Tucks) [Tucks 1 pad TP BID PRN #50 pad 11/18/18 Pads -] Phenylephrine HCl/[place] Butter 1 each RC DAILY #7 supp.rect 11/23/18 [Preparation H Suppository] Psyllium [Metamucil (Sugar-Free) -] 5.85 gm PO DAILY 7 Days #7 packet 11/23/18 ASSESSMENT AND PLAN: 43 year old female with history of external hemorrhoids, presents with intractable pain and intermittent bleeding associated with hemorrhoids, failed out-patient management with Sitz Baths and topical ointments. 1. Intractable Anal Pain secondary to External Hemorrhoids Surgery evaluated - no surgical intervention currently Sitz bath, Preparation H (only topical available on formulary) avoid TP as per Sx. Stool softener. For conservative management. 2. Hypokalemia - repleted. 3. Elevated Transaminases - previously normal. No abdominal pain/tenderness. For out-patient monitoring and further work-up.
== END 2018-11-23 15:25 | disposition home or self-care (01) | DRG 254 ==
LOC: JER 04:08 → JERBED 05:16 → J8W 15:45
PROVIDERS: ADMIT Internal Medicine
DX: K64.5 Perianal venous thrombosis (principal); E87.6 Hypokalemia; E66.9 Obesity, unspecified; Z68.31 Body mass index [BMI] 31.0-31.9, adult; K62.89 Other specified diseases of anus and rectum; D72.829 Elevated white blood cell count, unspecified; R74.0 Nonspecific elevation of levels of transaminase and lactic acid dehydrogenase [LDH]; F17.210 Nicotine dependence, cigarettes, uncomplicated
CPT/HCPCS: 36415; 71045-TC-FY; 80053; 83735; 84703; 85025; 85610; 85730; 86850; 86900; 86901; 93005; 93010; 99281-25; 99284-25; J7030

== ENCOUNTER 2021-05-04 08:58 | Emergency (ER) | payer OTHER ==
[2021-05-04 09:26] VITALS: BP 120/80; PULSE 83; TEMP 99.1; BMI 36.0
== END 2021-05-04 10:17 | disposition home or self-care (01) ==
LOC: JER 08:58
DX: B34.9 Viral infection, unspecified (principal)
CPT/HCPCS: 87804; 99283-25; C9803; U0003; U0005

== ENCOUNTER 2022-12-22 23:34 | Emergency (ER) | payer OTHER ==
[2022-12-22 23:43] VITALS: BP 170/83; PULSE 60; RESP 18; TEMP 98.2; BMI 36.0
[2022-12-23] MEDS ORDERED: LIDOCAINE HCL 2% JELLY 10 ML CARTRIDGE PR ONE (00:31)
[2022-12-23] MEDS ORDERED: HYDROCORTISONE ACETATE 25 MG/SUPP.RECT PR ONE (00:47)
[2022-12-23] MEDS ORDERED: KETOROLAC TROMETHAMINE 30 MG/1 ML VIAL IM ONE (01:06)
[2022-12-23] MEDS ORDERED: KETOROLAC TROMETHAMINE 30 MG/1 ML VIAL ONE (01:24)
== END 2022-12-23 02:06 | disposition home or self-care (01) ==
LOC: JER 23:34
PROC: 3E0233Z Introduction of Anti-inflammatory into Muscle, Percutaneous Approach (ICD-10-PCS; principal; 2022-12-23)
DX: K64.4 Residual hemorrhoidal skin tags (principal); R26.2 Difficulty in walking, not elsewhere classified
CPT/HCPCS: 99284-25

== ENCOUNTER 2023-01-02 09:29 | Inpatient (IN) | payer OTHER ==
[2023-01-02] MEDS ORDERED: ACETAMINOPHEN 1000 MG/100 ML BAG IVPB ONE (10:30)
[2023-01-02] MEDS ORDERED: ACETAMINOPHEN INJECTION 100 ML IVPB ONE (10:42)
[2023-01-02] MEDS ORDERED: morphine CARPU-JECT 2 MG/1 ML DISP.SYRIN IVPUSH ONE (10:54)
[2023-01-02] MEDS ORDERED: morphine SULFATE 4 MG/ML VIAL ONE (11:00)
[2023-01-02 11:06] LABS: BASO % 0.8 % (0-2.0); EOS % 0.7 % (0-4.5); HEMATOCRIT 41.5 % (32.4-45.2); HEMOGLOBIN 14.1 GM/dL (10.7-15.3); MCH 31.7 pg (25.7-33.7); MEAN CELL VOLUME 93.5 fl (80-96); MEAN PLT VOLUME 10.2 fl (7.5-11.1); MONO % 6.8 % (3.8-10.2); NEUT % 71.7 % (42.8-82.8); PLATELET COUNT 206 10^3/uL (134-434); RBC 4.45 M/mm3 (3.60-5.2); WHITE BLOOD COUNT 10.8 K/mm3 (4.0-10.0)
[2023-01-02 11:27] LABS: ALBUMIN 3.5 g/dl (3.4-5.0); BLOOD UREA NITROGEN 6.1 mg/dL (7-18); MAGNESIUM 1.8 mg/dL (1.8-2.4)
[2023-01-02 11:31] LABS: CREATININE 1.1 mg/dL (0.55-1.3)
[2023-01-02 11:32] LABS: BILIRUBIN,TOTAL 0.8 mg/dL (0.2-1); TOT PROT 7.9 g/dl (6.4-8.2)
[2023-01-02 11:37] LABS: INR 1.15 (0.83-1.09); PROTHROMBIN TIME (PATIENT) 13.3 SEC (9.7-13.0)
[2023-01-02 11:39] LABS: ACTIVATED PTT 27.4 SECONDS (25.2-36.5)
[2023-01-02] MEDS ORDERED: DEXAMETHASONE SOD PHOSPHATE 10 MG/1 ML VIAL IVPUSH ONE (12:42)
[2023-01-02] MEDS ORDERED: DEXAMETHASONE SOD PHOSPHATE 10 MG/1 ML VIAL ONE (12:42)
[2023-01-02] MEDS ORDERED: LIDOCAINE VISCOUS 2% ORAL/TOP 100 ML BOTTLE MM ONE (12:47)
[2023-01-02] MEDS ORDERED: diazePAM 5 MG TABLET ONE (12:47)
[2023-01-02] MEDS ORDERED: diazePAM 5 MG TABLET PO ONE (12:47)
[2023-01-02] MEDS ORDERED: ACETAMINOPHEN 500 MG TABLET (FP) PO PRN (14:35)
[2023-01-02] MEDS ORDERED: KETOROLAC TROMETHAMINE 15 MG/ML VIAL ONE ×2 (15:06→16:18)
[2023-01-02] MEDS: KETOROLAC TROMETHAMINE 15 MG/ML VIAL IVPUSH PRN ×3 (15:10→17:21)
[2023-01-02] MEDS: KETOROLAC TROMETHAMINE 15 MG/ML VIAL IVPUSH SCH (19:37)
[2023-01-02] MEDS: ACETAMINOPHEN 500 MG TABLET (FP) PO SCH (19:37)
[2023-01-02] MEDS ORDERED: AMPICILLIN NA/SULBACTAM NA 3 GM VIAL ONE (21:01)
[2023-01-02] MEDS ORDERED: DOXYCYCLINE HYCLATE 100 MG VIAL ONE (21:02)
[2023-01-02] MEDS: DOXYCYCLINE INJECTION 100 MG in DEXTROSE 5%-WATER 100 ML IVPB SCH (21:27)
[2023-01-02] MEDS: AMPICILLIN NA/SULBACTAM NA 3 GM in SODIUM CHLORIDE 100 ML IVPB SCH (21:27)
[2023-01-03 00:21] VITALS: BMI 30.8
[2023-01-03] MEDS: KETOROLAC TROMETHAMINE 15 MG/ML VIAL IVPUSH SCH ×3 (01:55→12:56)
[2023-01-03] MEDS: ACETAMINOPHEN 500 MG TABLET (FP) PO SCH ×3 (01:57→12:55)
[2023-01-03] MEDS: AMPICILLIN NA/SULBACTAM NA 3 GM in SODIUM CHLORIDE 100 ML IVPB SCH ×4 (03:56→15:35)
[2023-01-03] MEDS ORDERED: NICOTINE 14 MG/24 HOURS TOPICAL PATCH TD SCH (10:00)
[2023-01-03] MEDS: DOXYCYCLINE INJECTION 100 MG in DEXTROSE 5%-WATER 100 ML IVPB SCH (11:41)
[2023-01-03] MEDS ORDERED: MIDAZOLAM HCL 2 MG/2 ML SINGLE DOSE VIAL ONE ×3 (13:17→14:03)
[2023-01-03] MEDS ORDERED: PROPOFOL 40 ML ONE ×2 (13:22→15:11)
[2023-01-03] MEDS ORDERED: BUPIVACAINE HCL/PF 0.25% (2.5MG/ML) 10 ML VIAL ONE (13:27)
[2023-01-03] MEDS ORDERED: ONDANSETRON 4 MG/2 ML VIAL IVPUSH PRN ×2 (13:36→16:38)
[2023-01-03] MEDS ORDERED: LACTATED RINGERS SOLUTION 1,000 ML IV SCH (13:45)
[2023-01-03] MEDS ORDERED: AMPICILLIN NA/SULBACTAM NA 3 GM/100 ML PRE-DOCKED IVPB ONE (14:00)
[2023-01-03] MEDS ORDERED: BUPIVACAINE HCL/PF 0.25% (2.5MG/ML) 10 ML VIAL IJ ONE (14:19)
[2023-01-03] MEDS ORDERED: PROPOFOL 20 ML ONE (14:39)
[2023-01-03] MEDS ORDERED: MICROFIBRILLAR COLLAGEN 1 GM EACH TP ONE (15:22)
[2023-01-03] MEDS ORDERED: MEPERIDINE HCL 25 MG/ML VIAL IVPUSH ONE (15:48)
[2023-01-03] MEDS ORDERED: SODIUM CHLORIDE 1,000 ML IV SCH (16:15)
[2023-01-03] MEDS: SODIUM CHLORIDE 1,000 ML IV SCH (18:05)
[2023-01-03] MEDS: DOCUSATE SODIUM 100 MG CAPSULE (FP) PO SCH (21:37)
[2023-01-03] MEDS: POLYETHYLENE GLYCOL (HEALTHYLAX) 3350 17 GM PACKET PO SCH (21:37)
[2023-01-03] MEDS: PSYLLIUM 5.85 GM PACKET PO SCH (22:42)
[2023-01-04] MEDS: KETOROLAC TROMETHAMINE 15 MG/ML VIAL IVPUSH SCH ×3 (00:04→13:31)
[2023-01-04] MEDS ORDERED: ACETAMINOPHEN 500 MG TABLET (FP) PO SCH (00:30)
[2023-01-04] MEDS: SODIUM CHLORIDE 1,000 ML IV SCH ×2 (08:59→17:23)
[2023-01-04 09:25] LABS: HEMATOCRIT 39.2 % (32.4-45.2); HEMOGLOBIN 13.3 GM/dL (10.7-15.3); MCH 32.2 pg (25.7-33.7); MCHC 33.9 g/dl (32.0-36.0); MEAN CELL VOLUME 94.9 fl (80-96); MEAN PLT VOLUME 10.1 fl (7.5-11.1); PLATELET COUNT 163 10^3/uL (134-434); RBC 4.13 M/mm3 (3.60-5.2); RDW 13.7 % (11.6-15.6); WHITE BLOOD COUNT 8.2 K/mm3 (4.0-10.0)
[2023-01-04] MEDS: DOCUSATE SODIUM 100 MG CAPSULE (FP) PO SCH ×2 (09:35→21:59)
[2023-01-04] MEDS: NICOTINE 14 MG/24 HOURS TOPICAL PATCH TD SCH (09:36)
[2023-01-04] MEDS: POLYETHYLENE GLYCOL (HEALTHYLAX) 3350 17 GM PACKET PO SCH ×2 (09:36→22:03)
[2023-01-04 09:43] LABS: POTASSIUM 3.3 mmol/L (3.5-5.1)
[2023-01-04 09:47] LABS: ALBUMIN 2.9 g/dl (3.4-5.0); CALCIUM 7.9 mg/dL (8.5-10.1)
[2023-01-04 09:48] LABS: BLOOD UREA NITROGEN 11.6 mg/dL (7-18); MAGNESIUM 1.8 mg/dL (1.8-2.4)
[2023-01-04 09:50] LABS: CREATININE 0.7 mg/dL (0.55-1.3); PHOSPHOROUS 2.9 mg/dL (2.5-4.9)
[2023-01-04 09:52] LABS: BILIRUBIN,TOTAL 0.5 mg/dL (0.2-1); TOT PROT 6.3 g/dl (6.4-8.2)
[2023-01-04] MEDS ORDERED: ACETAMINOPHEN 1000 MG/100 ML BAG IVPB SCH (10:00)
[2023-01-04] MEDS: PSYLLIUM 5.85 GM PACKET PO SCH ×2 (10:57→22:03)
[2023-01-04] MEDS ORDERED: PROPOFOL 40 ML ONE (13:03)
[2023-01-04] MEDS ORDERED: ONDANSETRON 4 MG/2 ML VIAL IVPUSH PRN (13:26)
[2023-01-04] MEDS ORDERED: PROMETHAZINE HCL 25 MG/1 ML VIAL IVPB PRN (13:26)
[2023-01-04] MEDS ORDERED: LACTATED RINGERS SOLUTION 1,000 ML IV SCH (13:30)
[2023-01-04] MEDS ORDERED: HYDROmorphone HCl 2 MG/ML VIAL ONE (14:06)
[2023-01-04] MEDS: IBUPROFEN 600 MG TABLET (FP) PO SCH ×2 (16:17→21:59)
[2023-01-04] MEDS: ACETAMINOPHEN 500 MG TABLET (FP) PO SCH (16:22)
[2023-01-04] MEDS: oxyCODONE HCL 5 MG TABLET PO PRN ×2 (17:21→22:38)
[2023-01-04] MEDS: morphine SULFATE 4 MG/ML VIAL IVPUSH PRN (20:33)
[2023-01-04] MEDS ORDERED: SIMETHICONE 40 MG/0.6 ML BOTTLE PO ONE (23:00)
[2023-01-05] MEDS: ACETAMINOPHEN 500 MG TABLET (FP) PO SCH ×3 (02:28→16:38)
[2023-01-05] MEDS: morphine SULFATE 4 MG/ML VIAL IVPUSH PRN ×3 (03:23→22:47)
[2023-01-05] MEDS: IBUPROFEN 600 MG TABLET (FP) PO SCH ×4 (03:24→16:11)
[2023-01-05] MEDS: NICOTINE 14 MG/24 HOURS TOPICAL PATCH TD SCH (09:51)
[2023-01-05] MEDS: DOCUSATE SODIUM 100 MG CAPSULE (FP) PO SCH ×2 (09:51→21:45)
[2023-01-05] MEDS: POLYETHYLENE GLYCOL (HEALTHYLAX) 3350 17 GM PACKET PO SCH ×2 (09:51→21:45)
[2023-01-05] MEDS: oxyCODONE HCL 5 MG TABLET PO PRN ×2 (09:51→18:54)
[2023-01-05] MEDS: PSYLLIUM 5.85 GM PACKET PO SCH ×2 (09:53→21:46)
[2023-01-05 10:09] LABS: HEMATOCRIT 37.9 % (32.4-45.2); HEMOGLOBIN 13.1 GM/dL (10.7-15.3); MCHC 34.6 g/dl (32.0-36.0); MEAN CELL VOLUME 92.5 fl (80-96); MEAN PLT VOLUME 10.6 fl (7.5-11.1); PLATELET COUNT 172 10^3/uL (134-434); WHITE BLOOD COUNT 11.9 K/mm3 (4.0-10.0)
[2023-01-05 10:43] LABS: POTASSIUM 3.3 mmol/L (3.5-5.1)
[2023-01-05 10:51] LABS: CALCIUM 8.3 mg/dL (8.5-10.1)
[2023-01-05 10:52] LABS: ALBUMIN 3.1 g/dl (3.4-5.0); BLOOD UREA NITROGEN 7.2 mg/dL (7-18); MAGNESIUM 1.8 mg/dL (1.8-2.4)
[2023-01-05 10:55] LABS: CREATININE 0.7 mg/dL (0.55-1.3); PHOSPHOROUS 3.2 mg/dL (2.5-4.9)
[2023-01-05 10:56] LABS: BILIRUBIN,TOTAL 0.7 mg/dL (0.2-1); TOT PROT 6.8 g/dl (6.4-8.2)
[2023-01-05] MEDS: SIMETHICONE 80 MG TAB.CHEW (FP) PO PRN (16:16)
[2023-01-05] MEDS: SODIUM CHLORIDE 1,000 ML IV SCH (16:56)
[2023-01-06] MEDS: oxyCODONE HCL 5 MG TABLET PO PRN ×4 (01:57→15:09)
[2023-01-06] MEDS: morphine SULFATE 4 MG/ML VIAL IVPUSH PRN ×4 (04:14→23:16)
[2023-01-06 08:44] LABS: HEMATOCRIT 37.1 % (32.4-45.2); HEMOGLOBIN 12.6 GM/dL (10.7-15.3); MCH 32.3 pg (25.7-33.7); MCHC 34.1 g/dl (32.0-36.0); MEAN CELL VOLUME 94.7 fl (80-96); PLATELET COUNT 167 10^3/uL (134-434); RBC 3.92 M/mm3 (3.60-5.2); RDW 13.8 % (11.6-15.6); WHITE BLOOD COUNT 9.2 K/mm3 (4.0-10.0)
[2023-01-06 09:06] LABS: CHLORIDE 106 mmol/L (98-107); SODIUM 141 mmol/L (136-145)
[2023-01-06 09:19] LABS: CREATININE 0.7 mg/dL (0.55-1.3); PHOSPHOROUS 2.6 mg/dL (2.5-4.9)
[2023-01-06 09:20] LABS: BLOOD UREA NITROGEN 6.7 mg/dL (7-18)
[2023-01-06 09:21] LABS: BILIRUBIN,TOTAL 0.8 mg/dL (0.2-1); CO2 26 mmol/L (21-32); TOT PROT 6.5 g/dl (6.4-8.2)
[2023-01-06 09:22] LABS: ALK PHOS 75 U/L (45-117); SGOT/AST 16 U/L (15-37)
[2023-01-06 09:24] LABS: CALCIUM 8.2 mg/dL (8.5-10.1); MAGNESIUM 1.9 mg/dL (1.8-2.4)
[2023-01-06 09:25] LABS: ALBUMIN 2.9 g/dl (3.4-5.0); GLUCOSE,RANDOM 112 mg/dL (74-106)
[2023-01-06 09:28] LABS: SGPT/ALT 28 U/L (13-61)
[2023-01-06 09:33] LABS: ANION GAP 9 MMOL/L (8-16); POTASSIUM 2.9 mmol/L (3.5-5.1)
[2023-01-06] MEDS: PSYLLIUM 5.85 GM PACKET PO SCH ×2 (10:15→21:17)
[2023-01-06] MEDS: DOCUSATE SODIUM 100 MG CAPSULE (FP) PO SCH ×3 (10:15→21:17)
[2023-01-06] MEDS: NICOTINE 14 MG/24 HOURS TOPICAL PATCH TD SCH (10:15)
[2023-01-06] MEDS: POLYETHYLENE GLYCOL (HEALTHYLAX) 3350 17 GM PACKET PO SCH ×2 (10:15→21:17)
[2023-01-06] MEDS ORDERED: POTASSIUM CHLORIDE ORAL LIQUID 20 MEQ/15 ML PO ONE ×3 (10:25→16:00)
[2023-01-06] MEDS: SODIUM CHLORIDE 1,000 ML IV SCH (17:57)
[2023-01-06] MEDS: SIMETHICONE 80 MG TAB.CHEW (FP) PO PRN (23:16)
[2023-01-07] MEDS: oxyCODONE HCL 5 MG TABLET PO PRN ×3 (00:03→13:22)
[2023-01-07] MEDS: morphine SULFATE 4 MG/ML VIAL IVPUSH PRN (05:57)
[2023-01-07] MEDS: DOCUSATE SODIUM 100 MG CAPSULE (FP) PO SCH ×2 (05:58→13:19)
[2023-01-07 08:04] LABS: HEMATOCRIT 40.8 % (32.4-45.2); HEMOGLOBIN 13.6 GM/dL (10.7-15.3); MCH 31.8 pg (25.7-33.7); MCHC 33.4 g/dl (32.0-36.0); MEAN CELL VOLUME 95.1 fl (80-96); MEAN PLT VOLUME 10.4 fl (7.5-11.1); PLATELET COUNT 186 10^3/uL (134-434); RBC 4.29 M/mm3 (3.60-5.2); RDW 13.7 % (11.6-15.6); WHITE BLOOD COUNT 9.8 K/mm3 (4.0-10.0)
[2023-01-07 08:24] LABS: POTASSIUM 3.2 mmol/L (3.5-5.1)
[2023-01-07 08:32] LABS: BLOOD UREA NITROGEN 4.3 mg/dL (7-18); CALCIUM 8.3 mg/dL (8.5-10.1); MAGNESIUM 1.9 mg/dL (1.8-2.4); PHOSPHOROUS 2.8 mg/dL (2.5-4.9)
[2023-01-07 08:35] LABS: CREATININE 0.7 mg/dL (0.55-1.3); TOT PROT 6.8 g/dl (6.4-8.2)
[2023-01-07 08:38] LABS: BILIRUBIN,TOTAL 0.9 mg/dL (0.2-1)
[2023-01-07] MEDS ORDERED: ACETAMINOPHEN 500 MG TABLET (FP) PO SCH (09:00)
[2023-01-07] MEDS ORDERED: POTASSIUM CHLORIDE TABS 20 MEQ TABLET.ER (FP) PO ONE (09:15)
[2023-01-07] MEDS: NICOTINE 14 MG/24 HOURS TOPICAL PATCH TD SCH (09:25)
[2023-01-07] MEDS: POLYETHYLENE GLYCOL (HEALTHYLAX) 3350 17 GM PACKET PO SCH (09:25)
[2023-01-07] MEDS: PSYLLIUM 5.85 GM PACKET PO SCH (10:17)
[2023-01-07] MEDS ORDERED: POTASSIUM CHLORIDE TABS 20 MEQ TABLET.ER (FP) PO SCH (12:00)
[2023-01-07] MEDS ORDERED: IBUPROFEN 600 MG TABLET (FP) PO SCH (13:00)
[2023-01-07 15:49] VITALS: BP 150/84; PULSE 80; RESP 18; TEMP 97.4
== END 2023-01-07 16:00 | disposition home or self-care (01) | DRG 226 ==
LOC: JER 09:29 → UNDOADMOB 13:09 → JERBED 13:09 → INTOOBSV 13:09 → JERBED 14:34 → J6S 23:15 → OBSVTOIN 01-03 09:49
PROVIDERS: ADMIT Internal Medicine; ATTEND Internal Medicine
PROC: 06BY0ZC Excision of Hemorrhoidal Plexus, Open Approach (ICD-10-PCS; principal; 2023-01-03 12:30)
DX: K64.9 Unspecified hemorrhoids (principal); E66.9 Obesity, unspecified; Z68.30 Body mass index [BMI] 30.0-30.9, adult; F17.210 Nicotine dependence, cigarettes, uncomplicated; E87.6 Hypokalemia
CPT/HCPCS: 36415; 74177-TC; 80053; 81003; 83735; 84100; 84703; 85025; 85027; 85610; 85651; 85730; 86140; 86850; 86900; 86901; 87086; 94760; 99285-25; G0378; J1100; Q9967

== ENCOUNTER 2023-01-09 22:53 | Observation (INO) | payer OTHER ==
[2023-01-10] MEDS ORDERED: morphine CARPU-JECT 2 MG/1 ML DISP.SYRIN IVPUSH ONE (00:53)
[2023-01-10 05:06] VITALS: BMI 31.0
[2023-01-10] MEDS ORDERED: DOCUSATE SODIUM 100 MG CAPSULE (FP) PO PRN (05:50)
[2023-01-10] MEDS ORDERED: POLYETHYLENE GLYCOL 3350 255 GM BTL PO PRN (05:50)
[2023-01-10] MEDS ORDERED: SODIUM CHLORIDE 1,000 ML IV SCH (06:00)
[2023-01-10] MEDS ORDERED: POLYETHYLENE GLYCOL (HEALTHYLAX) 3350 17 GM PACKET PO PRN (06:36)
[2023-01-10] MEDS: KETOROLAC TROMETHAMINE 15 MG/ML VIAL IVPUSH SCH ×3 (10:18→20:33)
[2023-01-10] MEDS ORDERED: POLYETHYLENE GLYCOL (HEALTHYLAX) 3350 17 GM PACKET PO STA (10:34)
[2023-01-10 10:43] LABS: BASO % 0.6 % (0-2.0); EOS % 1.6 % (0-4.5); HEMATOCRIT 37.8 % (32.4-45.2); HEMOGLOBIN 12.9 GM/dL (10.7-15.3); LYMPH % 15.4 % (8-40); MCH 32.2 pg (25.7-33.7); MCHC 34.1 g/dl (32.0-36.0); MEAN CELL VOLUME 94.4 fl (80-96); MEAN PLT VOLUME 10.3 fl (7.5-11.1); MONO % 10.9 % (3.8-10.2); NEUT % 71.5 % (42.8-82.8); PLATELET COUNT 213 10^3/uL (134-434); RDW 13.6 % (11.6-15.6); WHITE BLOOD COUNT 9.5 K/mm3 (4.0-10.0)
[2023-01-10 11:11] LABS: POTASSIUM 3.7 mmol/L (3.5-5.1)
[2023-01-10 11:14] LABS: BLOOD UREA NITROGEN 5.6 mg/dL (7-18)
[2023-01-10 11:16] LABS: CALCIUM 8.6 mg/dL (8.5-10.1)
[2023-01-10 11:19] LABS: CREATININE 0.8 mg/dL (0.55-1.3)
[2023-01-10 11:21] LABS: BILIRUBIN,TOTAL 0.7 mg/dL (0.2-1); TOT PROT 6.8 g/dl (6.4-8.2)
[2023-01-10] MEDS: POLYETHYLENE GLYCOL (HEALTHYLAX) 3350 17 GM PACKET PO SCH ×2 (13:04→22:58)
[2023-01-10 13:20] LABS: POTASSIUM 3.5 mmol/L (3.5-5.1)
[2023-01-10 13:22] LABS: BLOOD UREA NITROGEN 6.1 mg/dL (7-18); CALCIUM 8.6 mg/dL (8.5-10.1)
[2023-01-10 13:25] LABS: CREATININE 0.8 mg/dL (0.55-1.3)
[2023-01-10] MEDS: GABAPENTIN 100 MG CAPSULE PO SCH ×2 (13:35→22:58)
[2023-01-11] MEDS: KETOROLAC TROMETHAMINE 15 MG/ML VIAL IVPUSH SCH ×3 (04:04→15:33)
[2023-01-11] MEDS: GABAPENTIN 100 MG CAPSULE PO SCH ×2 (06:20→13:54)
[2023-01-11] MEDS: POLYETHYLENE GLYCOL (HEALTHYLAX) 3350 17 GM PACKET PO SCH (09:41)
[2023-01-11] MEDS ORDERED: POTASSIUM CHLORIDE TABS 20 MEQ TABLET.ER (FP) PO SCH (10:00)
[2023-01-11 11:51] VITALS: RESP 20
[2023-01-11] MEDS ORDERED: ACETAMINOPHEN 1000 MG/100 ML BAG IVPB ONE (16:03)
[2023-01-11 18:33] VITALS: BP 135/89; PULSE 74; TEMP 98.7
== END 2023-01-11 18:54 | disposition home or self-care (01) ==
LOC: JER 22:53 → JERBED 01-10 01:58 → J8W 01-10 04:22
PROVIDERS: ADMIT Internal Medicine; ATTEND Internal Medicine
PROC: 3E033NZ Introduction of Analgesics, Hypnotics, Sedatives into Peripheral Vein, Percutaneous Approach (ICD-10-PCS; principal; 2023-01-10)
PROC: 3E0333Z Introduction of Anti-inflammatory into Peripheral Vein, Percutaneous Approach (ICD-10-PCS; 2023-01-10)
DX: K62.89 Other specified diseases of anus and rectum (principal); K64.4 Residual hemorrhoidal skin tags; R19.7 Diarrhea, unspecified; K92.1 Melena; Z88.8 Allergy status to other drugs, medicaments and biological substances
CPT/HCPCS: 36415; 80048; 80053; 85025; 93005; 93010; 96374; 96375; 96376; 99285-25; G0378

== ENCOUNTER 2023-01-20 11:09 | Emergency (ER) | payer OTHER ==
[2023-01-20 11:30] VITALS: BMI 30.5
[2023-01-20] MEDS ORDERED: KETOROLAC TROMETHAMINE 30 MG/1 ML VIAL IVPUSH ONE (12:01)
[2023-01-20] MEDS ORDERED: SODIUM CHLORIDE 0.9% 1000 ML INFUS.BAG IV ONE (12:02)
[2023-01-20] MEDS ORDERED: KETOROLAC TROMETHAMINE 30 MG/1 ML VIAL ONE (12:39)
[2023-01-20 12:51] LABS: BASO % 1.2 % (0-2.0); EOS % 1.4 % (0-4.5); HEMATOCRIT 40.9 % (32.4-45.2); HEMOGLOBIN 14.3 GM/dL (10.7-15.3); LYMPH % 26.6 % (8-40); MCH 32.4 pg (25.7-33.7); MCHC 34.9 g/dl (32.0-36.0); MEAN CELL VOLUME 92.7 fl (80-96); MEAN PLT VOLUME 8.6 fl (7.5-11.1); MONO % 6.3 % (3.8-10.2); NEUT % 64.5 % (42.8-82.8); PLATELET COUNT 347 10^3/uL (134-434); RBC 4.41 M/mm3 (3.60-5.2); RDW 13.8 % (11.6-15.6); WHITE BLOOD COUNT 7.4 K/mm3 (4.0-10.0)
[2023-01-20 13:08] LABS: POTASSIUM 4.6 mmol/L (3.5-5.1)
[2023-01-20 13:10] LABS: ALBUMIN 3.2 g/dl (3.4-5.0); BLOOD UREA NITROGEN 7.8 mg/dL (7-18)
[2023-01-20 13:15] LABS: BILIRUBIN,TOTAL 0.5 mg/dL (0.2-1); TOT PROT 7.5 g/dl (6.4-8.2)
[2023-01-20 16:55] VITALS: BP 133/65; PULSE 60; RESP 18; TEMP 98.6
[2023-01-20] MEDS ORDERED: morphine CARPU-JECT 2 MG/1 ML DISP.SYRIN IVPUSH ONE (17:04)
[2023-01-20] MEDS ORDERED: LACTULOSE 20 GM/30 ML UDC (FOR ORAL USE ONLY) PO ONE (17:04)
[2023-01-20] MEDS ORDERED: LACTULOSE 20 GM/30 ML UDC (FOR ORAL USE ONLY) ONE (17:45)
== END 2023-01-20 19:14 | disposition home or self-care (01) ==
LOC: JER 11:09
PROC: 3E0333Z Introduction of Anti-inflammatory into Peripheral Vein, Percutaneous Approach (ICD-10-PCS; principal; 2023-01-20)
PROC: 3E033GC Introduction of Other Therapeutic Substance into Peripheral Vein, Percutaneous Approach (ICD-10-PCS; 2023-01-20)
DX: K62.89 Other specified diseases of anus and rectum (principal)
CPT/HCPCS: 36415; 74176-TC; 80053; 83605; 84703; 85025; 99284-25